=== PATIENT | female | born 1975 | race Caucasian/White ===

== ENCOUNTER 2020-07-27 04:25 | Emergency (ER) | payer MEDICARE, OTHER ==
--- NOTE | 2020-07-27 04:47 | ED.PDOC ---
History of Present Illness - General Chief Complaint: Respiratory Problem Stated Complaint: cough, sore throat Time Seen by Provider: 07/27/20 04:28 Source: patient, RN notes reviewed, Vital Signs reviewed Exam Limitations: no limitations - History of Present Illness Comments: one week of cough, sore throat, lost of taste and smell, malaise. No known exposure to covid, but ex had similar symptoms. He tested negative. Timing/Duration: week - 1 Cough Quality/Degree: moderate, dry cough Worsening Factors: other - deep breaths Associated Symptoms: cough, headache, sore throat Respiratory Risk Factors: exposure to illness Home Medications: Ambulatory Orders Benzonatate Perles [Tessalon Perles] 100 mg PO TID PRN #30 cap 07/27/20 Prednisone 40 mg PO DAILY 5 Days #10 tab 07/27/20 Review of Systems - Review of Systems Constitutional: States: fever - subjective, malaise. Denies: chills EENTM: States: throat pain. Denies: eye pain Respiratory: States: cough. Denies: short of breath Cardiology: Denies: chest pain Gastrointestinal/Abdominal: Denies: abdominal pain, nausea, vomiting Genitourinary: Denies: pain Musculoskeletal: Denies: back pain, muscle pain Skin: Denies: rash Neurological: States: headache - chronic , seizure - last 2-3 months ago, has seizure disorder Hematologic/Lymphatic: Denies: easy bleeding, easy bruising Past Medical History (General) - Patient Medical History Hx Seizures: Yes Hx Stroke: No Hx Dementia: No Hx Asthma: No Hx of COPD: No Hx Cardiac Disorders: No Hx Congestive Heart Failure: No Hx Hypertension: No Hx Diabetes: No Hx Gastroesophageal Reflux: No Hx Renal Disease: No Hx MRSA: No Hx Other PMH: Yes - aneurysm and Astrocytoma Surgical History: cancer surgery - brain, other - hysterectomy age 21 Family Medical History - Family History Mother Family History: Unknown Physical Exam - Physical Exam General Appearance: Alert, Comfortable, No apparent distress, Well Developed, Well Groomed, Well Hydrated, Well Nourished Eye Exam: bilateral normal ENT Exam: normal ENT inspection, hearing grossly normal, TMs normal Neck: non-tender, full range of motion, supple, normal inspection Respiratory: chest non-tender, lungs clear, normal breath sounds, no respiratory distress, no accessory muscle use, other - dry cough noted Cardiovascular/Chest: normal peripheral pulses, regular rate, rhythm, no edema, no gallop Gastrointestinal/Abdominal: normal bowel sounds, non tender, soft, no organomegaly Extremity: non-tender, normal inspection, no pedal edema, no calf tenderness Neurologic: no motor/sensory deficits, alert, normal mood/affect, oriented x 3 Skin Exam: normal color, warm/dry Progress - Progress Progress: 07/27/20 05:41 The data reviewed when caring for this patient included: nurse notes, prior records, etc. The history and assessments from nurses notes were reviewed and considered, and the patient's home medication list was also reviewed and considered. My assessment and the results of testing completed here in the ED were discussed with the patient. All questions were answered, and they express u nderstanding of my assessment and the plan. They have been instructed to return if their symptoms worsen, and have been asked to follow up with their primary care physician to recheck today's presenting complaint. Strict return precautions given. I have reviewed medication, benefits, alternatives and side effects. Rina Lopez DO #[id number] - EKG/XRAY/CT XRAY: chest - no acute cardiopulmonary abnormality Departure - Departure Clinical Impression: Bronchitis, Viral URI with cough Time of Disposition: 05:34 Disposition: Discharge to Home or Self Care Condition: Fair Departure Forms: ED Discharge - Pt. Copy, Patient Portal Self Enrollment Instructions: Cough in Adults, Viral Pharyngitis Diet: resume usual diet Activity: increase activity as tolerated Prescriptions: Prednisone 40 mg PO DAILY 5 Days #10 tab Benzonatate Perles [Tessalon Perles] 100 mg PO TID PRN #30 cap PRN Reason: Cough Home Medications: Ambulatory Orders Benzonatate Perles [Tessalon Perles] 100 mg PO TID PRN #30 cap 07/27/20 Prednisone 40 mg PO DAILY 5 Days #10 tab 07/27/20 Additional Instructions: honey for sore throat and cough.
[2020-07-27 04:50] VITALS: O2SAT 99
--- NOTE | 2020-07-27 05:25 | RAD ---
EXAM: XR Chest, 1 View CLINICAL HISTORY: The patient is 44 years old and is Female; cough TECHNIQUE: Single upright portable view of the chest. COMPARISON: No relevant prior studies available. FINDINGS: Lungs: Hazy opacities overlying the lung bases without silhouetting of the anatomic structures, suggesting soft tissue attenuation artifact. No pulmonary vascular congestion. Pleural space: No pleural effusion or pneumothorax. Heart: Unremarkable. No cardiomegaly. Mediastinum: Unremarkable. Bones/joints: No acute fracture visualized. Upper abdomen: No free air in the visualized upper abdomen. IMPRESSION: Hazy opacities overlying the lung bases without silhouetting of the anatomic structures, suggesting soft tissue attenuation artifact. Clinical correlation for fever suggested. Electronically signed by: Brynn Ji MD 07/27/2020 5:24 AM [facility]
[2020-07-27] MEDS ORDERED: predniSONE 20 MG TAB PO ONE (05:35)
[2020-07-27 05:53] VITALS: BP 131/78; TEMP 97
== END 2020-07-27 05:45 | disposition home or self-care (01) ==
LOC: ER 04:25
DX: J06.9 Acute upper respiratory infection, unspecified (principal); J40 Bronchitis, not specified as acute or chronic; G40.909 Epilepsy, unspecified, not intractable, without status epilepticus; Z20.822 Contact with and (suspected) exposure to COVID-19
CPT/HCPCS: 71045; 87070; 87635; 87880; J7512